=== PATIENT | female | born 1990 | race American Indian/Alaskan Native ===

== ENCOUNTER 2016-09-29 14:47 | Emergency (ER) | payer OTHER, BC ==
[2016-09-29 15:47] VITALS: BP 168/96; PULSE 59; RESP 19; TEMP 97.8; O2SAT 98
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
--- NOTE | 2016-09-29 17:02 | RAD ---
PROCEDURE: Cervical Spine Radiographs. Three views of the cervical spine performed fragments. Note that the study slightly limited due to partial obscuration of the odontoid by overlying occiput in the open-mouth projection. . HISTORY: Pain. COMPARISON: None. FINDINGS: BONES: Current study reveals no evidence of acute a compression fracture nor retropulsed. Vertebral bodies exhibit normal stature. Vertebral bodies and facets normally aligned DISC SPACES: There is minor anterior disc space narrowing at the C5-C6 level with small marginal anterior osteophyte formation. Disc space heights are otherwise maintained. No significant facet or uncovertebral arthropathy SOFT TISSUES: Normal. No prevertebral soft tissue swelling. OTHER FINDINGS: None. IMPRESSION: The slightly limited study demonstrating no acute fractures nor retropulsed fragments. Minor degenerative spondylosis C5-C6 level. No acute fracture seen
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
== END 2016-09-29 17:08 | disposition home or self-care (01) ==
LOC: H.ER 14:47
DX: M54.9 Dorsalgia, unspecified (principal); M54.2 Cervicalgia; M54.12 Radiculopathy, cervical region; V43.52XA Car driver injured in collision with other type car in traffic accident, initial encounter; Y92.410 Unspecified street and highway as the place of occurrence of the external cause; I10 Essential (primary) hypertension

== ENCOUNTER 2018-06-16 13:36 | Emergency (ER) | payer BC, OTHER ==
[2018-06-16 13:50] VITALS: PULSE 66; TEMP 98.9
--- NOTE | 2018-06-16 14:39 | ED PDOC ---
HPI: Chest Pain Time Seen by Provider: 06/16/18 13:53 Chief Complaint (Nursing): Chest Pain Chief Complaint (Provider): Chest Pain History Per: Patient History/Exam Limitations: no limitations Onset/Duration Of Symptoms: Days (x 4) Current Symptoms Are (Timing): Still Present Quality: Burning, "Pain" Additional Complaint(s): 28 year old female with no medical history presents to the ED with left sided chest pain, described as burning, intermittently for the last 4 days. It frequently happens when she is eating. Pain is not worse on exertion or with a deep breath. She also complains of a headache for the last three days. Patient reports she has experienced heartburn before and the pain is unlike the similar episodes. She has also experienced chest pain in the past which she had evaluated by her PMD with a normal EKG. She has not followed up with a specialist. Denies a history of HTN, but has varying blood pressures in the past. Blood pressure is high in the ED at 198/105. Also denies leg swelling, vomiting, nausea, diarrhea and abdominal pain. PMD: does not remember Past Medical History Reviewed: Historical Data, Nursing Documentation, Vital Signs Vital Signs: Last Vital Signs Temp 98.9 F 06/16/18 13:46 Pulse 66 06/16/18 13:46 Resp 15 06/16/18 13:46 BP 198/105 H 06/16/18 13:46 Pulse Ox 97 06/16/18 13:46 - Medical History PMH: HTN - Family History Family History: States: Unknown Family Hx - Immunization History Hx Tetanus Toxoid Vaccination: No Hx Influenza Vaccination: No Hx Pneumococcal Vaccination: No - Home Medications Home Medications: Ambulatory Orders Medication Instructions Recorded Norgestimate-Ethinyl Estradiol 1 tab PO DAILY 06/01/16 [Trinessa Tablet] Cyclobenzaprine [Cyclobenzaprine 10 mg PO Q8 PRN #30 tab 09/29/16 HCl] RX: Naproxen [Naprosyn] 500 mg PO BID PRN #30 tab 09/29/16 Famotidine [Pepcid] 20 mg PO DAILY #14 tab 06/16/18 - Allergies Allergies/Adverse Reactions: Allergies Allergy/AdvReac Type Severity Reaction Status Date / Time No Known Allergies Allergy Verified 06/16/18 13:50 GAMA Risk Score for UA/NSTEMI - GAMA Risk Score Age > 64: NO 3 or more CAD Risk Factors: NO Known CAD (Stenosis greater than 50%): NO Aspirin use in past 7 days: NO Severe Angina: NO EKG ST changes greater than 0.5mm: NO Positive Cardiac Marker: NO GAMA Score: 0 Risk %: 5% Wells Criteria for PE - Wells Criteria for Pulmonary Embolism Clinical Signs and Symptoms of DVT: No P.E is #1 Diagnosis, or Equally Likely: No Heart Rate >100: No Immobilization at least 3 days;Surgery previous 4 weeks: No Previous, objectively diagnosed PE or DVT: No Hemoptysis: No Malignancy w/treatment within 6 months, or palliative: No Total Score: 0 Review of Systems ROS Statement: Except As Marked, All Systems Reviewed And Found Negative Constitutional: Negative for: Fever, Chills Cardiovascular: Positive for: Chest Pain Respiratory: Negative for: Cough, Shortness of Breath, SOB with Exertion Gastrointestinal: Negative for: Nausea, Vomiting, Abdominal Pain, Diarrhea Genitourinary Female: Negative for: Dysuria, Frequency Musculoskeletal: Negative for: Leg Pain (and swelling) Physical Exam - Reviewed Nursing Documentation Reviewed: Yes Vital Signs Reviewed: Yes - Physical Exam Appears: Positive for: Non-toxic, No Acute Distress Head Exam: Positive for: ATRAUMATIC, NORMAL INSPECTION, NORMOCEPHALIC Skin: Positive for: Normal Color, Warm, Dry Eye Exam: Positive for: EOMI, Normal appearance, PERRL Neck: Positive for: Normal, Painless ROM, Supple Cardiovascular/Chest: Positive for: Regular Rate, Rhythm. Negative for: Murmur Respiratory: Positive for: Normal Breath Sounds. Negative for: Wheezing, Respiratory Distress Gastrointestinal/Abdominal: Positive for: Normal Exam, Soft. Negative for: Tenderness Back: Positive for: Normal Inspection. Negative for: L CVA Tenderness, R CVA Tenderness Extremity: Positive for: Normal ROM (x 4). Negative for: Deformity Neurologic/Psych: Positive for: Alert, Oriented (x 3). Negative for: Motor/Sensory Deficits - Laboratory Results Result Diagrams: 06/16/18 14:38 06/16/18 14:38 - ECG O2 Sat by Pulse Oximetry: 97 (RA) Pulse Ox Interpretation: Normal - Progress Re-evaluation Time: 17:50 Condition: Re-examined, Improved Medical Decision Making Medical Decision Makin:17 Impression: chest pain and headache Diff dx for chest pain include but are not limited to: ACS, PE, GERD, musculoskeletal pain. Diff dx for headache: HTN Initial Plan: --BMP --CBC --D Dimer --Troponin --EKG --CXR --Motrin 600 mg PO Scribe Attestation: Documented by Jeni Howard acting as a scribe for Georgia Cavazos MD Provider Scribe Attestation: All medical record entries made by the Scribe were at my direction and personally dictated by me. I have reviewed the chart and agree that the record accurately reflects my personal performance of the history, physical exam, medical decision making, and the department course for this patient. I have also personally directed, reviewed, and agree with the discharge instructions and disposition. Disposition - Clinical Impression Clinical Impression: Chest pain - Patient ED Disposition Is Patient to be Admitted: No Doctor Will See Patient In The: Office Counseled Patient/Family Regarding: Studies Performed, Diagnosis, Need For Followup - Disposition Referrals: Yazan Baeza MD [Staff Provider] - Disposition: Routine/Home Disposition Time: 17:51 Condition: GOOD Additional Instructions: MOE MENDOZA, thank you for letting us take care of you today. Your provider was Georgia Cavazos MD and you were treated for CHEST PAIN. The emergency medical care you received today was directed at your acute symptoms. If you were prescribed any medication, please fill it and take as directed. It may take several days for your symptoms to resolve. Return to the Emergency Department if your symptoms worsen, do not improve, or if you have any other problems. Please contact your doctor or call one of the physicians/clinics you have been referred to that are listed on the Patient Visit Information form that is included in your discharge packet. Bring any paperwork you were given at discharge with you along with any medications you are taking to your follow up visit. Our treatment cannot replace ongoing medical care by a primary care provider outside of the emergency department. Thank you for allowing the [facility] team to be part of your care today. If you had an X-Ray or CT scan: A Radiologist will review the ED reading if any change in treatment is needed we will contact you. If you had a blood, urine, or wound culture: It will take several days for the results, if any change in treatment is needed we will contact you. If you had an STI test: It will take 48 hours for the results. Please call after 1 week if you have not heard back. Prescriptions: Famotidine [Pepcid] 20 mg PO DAILY #14 tab Instructions: Chest Pain
[2018-06-16 14:50] LABS: BASO # 0.1 K/uL (0.0-0.2); BASO % 1.3 % (0.0-2.0); EOS # 0.1 K/uL (0.0-0.7); EOS % 2.5 % (0.0-4.0); LYMPH # 1.7 K/uL (1.0-4.3); MEAN CELL VOLUME 91.8 fl (81.0-99.0); MEAN CORPUSCULAR HEMOGLOBIN 30.7 pg (27.0-31.0); MEAN CORPUSCULAR HGB CONC 33.4 g/dL (33.0-37.0); MEAN PLATELET VOLUME 8.6 fl (7.2-11.7); MONO # 0.3 K/uL (0.0-0.8); MONO % 6.6 % (0.0-10.0); NEUT # 2.6 K/uL (1.8-7.0); NEUT % 53.6 % (50.0-75.0); NRBC % 0.1 % (0.0-0.0); RBC 4.25 Mil/uL (3.80-5.20); RED CELL DISTRIBUTION WIDTH 12.8 % (11.5-14.5); WHITE BLOOD COUNT 4.8 K/uL (4.8-10.8)
[2018-06-16 14:57] LABS: BLOOD UREA NITROGEN 13 mg/dl (7-17); CALCIUM 9.1 mg/dL (8.4-10.2); GFR NON-AFRICAN AMERICAN > 60
--- NOTE | 2018-06-16 16:12 | RAD ---
Date of service: 06/16/2018 HISTORY: chest pain COMPARISON: No prior. TECHNIQUE: Chest PA and lateral FINDINGS: LUNGS: No active pulmonary disease. PLEURA: No significant pleural effusion identified. No pneumothorax apparent. CARDIOVASCULAR: No aortic atherosclerotic calcification present. Normal cardiac size. No pulmonary vascular congestion. OSSEOUS STRUCTURES: No significant abnormalities. VISUALIZED UPPER ABDOMEN: Normal. OTHER FINDINGS: None. IMPRESSION: No active disease.
[2018-06-16 20:46] VITALS: BP 144/90; RESP 18
--- NOTE | 2018-06-17 00:01 | CARD ---
APPROVED REPORT Date of service: 06/16/2018 EKG Measurement Heart [id number] <Conclusion> Normal sinus rhythm Normal Electrocardiogram
[2018-06-17 12:35] VITALS: O2SAT 97
== END 2018-06-16 17:53 | disposition home or self-care (01) ==
LOC: H.ER 13:36
DX: R07.89 Other chest pain (principal); I10 Essential (primary) hypertension

== ENCOUNTER 2018-06-27 06:41 | Emergency (ER) | payer BC ==
[2018-06-27] MEDS ORDERED: Sodium Chloride 0.9% 1,000 ML IV STA (07:28)
--- NOTE | 2018-06-27 08:01 | ED PDOC ---
HPI: Abdomen Time Seen by Provider: 06/27/18 07:15 Chief Complaint (Nursing): Back Pain Chief Complaint (Provider): Abdominal Pain History Per: Patient History/Exam Limitations: no limitations Onset/Duration Of Symptoms: Hrs Current Symptoms Are (Timing): Still Present Additional Complaint(s): Patient is a 28 y/o female with a PMHx of HTN who presents to the ED for kolby luation of epigastric and right, upper quadrant abdominal pain ongoing since last night. Patient reports associated nausea and vomiting. Patient denies fever, diarrhea, and hematemesis. PCP: None Provided Past Medical History Reviewed: Historical Data, Nursing Documentation, Vital Signs Vital Signs: Last Vital Signs Temp 97.6 F 06/27/18 06:53 Pulse 79 06/27/18 06:53 Resp 16 06/27/18 06:53 BP 120/87 06/27/18 06:53 Pulse Ox 99 06/27/18 06:53 - Medical History PMH: HTN - Surgical History Surgical History: No Surg Hx - Family History Family History: States: Unknown Family Hx - Immunization History Hx Tetanus Toxoid Vaccination: No Hx Influenza Vaccination: No Hx Pneumococcal Vaccination: No - Home Medications Home Medications: Ambulatory Orders Medication Instructions Recorded Norgestimate-Ethinyl Estradiol 1 tab PO DAILY 06/01/16 [Trinessa Tablet] Cyclobenzaprine [Cyclobenzaprine 10 mg PO Q8 PRN #30 tab 09/29/16 HCl] Naproxen [Naprosyn] 500 mg PO BID PRN #30 tab 09/29/16 Famotidine [Pepcid] 20 mg PO DAILY #14 tab 06/16/18 Dicyclomine [Dicyclomine HCl] 10 mg PO Q8 #10 cap 06/27/18 Famotidine [Pepcid] 20 mg PO Q12 #20 tab 06/27/18 Ondansetron [Zofran] 4 mg PO Q8H #10 tab 06/27/18 - Allergies Allergies/Adverse Reactions: Allergies Allergy/AdvReac Type Severity Reaction Status Date / Time No Known Allergies Allergy Verified 06/27/18 06:53 Review of Systems ROS Statement: Except As Marked, All Systems Reviewed And Found Negative Constitutional: Negative for: Fever Gastrointestinal: Positive for: Nausea, Vomiting, Abdominal Pain (epigastric and right, upper quadrant). Negative for: Diarrhea, Hematemesis Physical Exam - Reviewed Nursing Documentation Reviewed: Yes Vital Signs Reviewed: Yes - Physical Exam Appears: Positive for: Non-toxic, No Acute Distress Head Exam: Positive for: ATRAUMATIC, NORMAL INSPECTION, NORMOCEPHALIC Skin: Positive for: Normal Color, Warm, Dry Eye Exam: Positive for: EOMI, Normal appearance, PERRL Neck: Positive for: Normal, Painless ROM, Supple Cardiovascular/Chest: Positive for: Regular Rate, Rhythm. Negative for: Murmur Respiratory: Positive for: Normal Breath Sounds. Negative for: Respiratory Distress Gastrointestinal/Abdominal: Positive for: Tenderness (epigastric and right, upper quadrant) Back: Positive for: Normal Inspection. Negative for: L CVA Tenderness, R CVA Tenderness, Vertebral Tenderness Extremity: Positive for: Normal ROM. Negative for: Pedal Edema, Deformity Neurologic/Psych: Positive for: Alert, Oriented. Negative for: Motor/Sensory Deficits - Laboratory Results Result Diagrams: 06/27/18 08:10 06/27/18 08:10 - ECG O2 Sat by Pulse Oximetry: 99 (RA) Pulse Ox Interpretation: Normal - Progress Re-evaluation Time: 10:26 Condition: Improved (No vomiting) Medical Decision Making Medical Decision Making: Time: 0728 Impression: Abdominal pain, nausea, and vomiting. DDx includes but not limited to possible gastritis, peptic ulcer, and gallbladder disease. Plan: VBG Shock CT Abd Pelvis IV Contrast CMP Lipase Urine Urine Dipstick CBC Morphine 2 mg IVP IV Fluids Pepcid 20 mg IVP Zofran 4 mg IVP Time: 0938 FINDINGS: LOWER THORAX: No visible consolidation, pleural effusion, or pneumothorax. LIVER: Hypoattenuation of the liver compatible with hepatic steatosis. GALLBLADDER AND BILE DUCTS: Unremarkable. PANCREAS: Unremarkable. SPLEEN: Unremarkable. ADRENALS: Unremarkable. KIDNEYS AND URETERS: The kidneys enhance symmetrically. No hydronephrosis or obstructing calculus identified. VASCULATURE: No aortic aneurysm. No atherosclerotic calcification or mural plaque present. BOWEL: Stomach is nondistended. Lack of oral contrast limits evaluation for bowel pathology. Bowel loops appear within normal limits of caliber without evidence of obstruction. Markedly thickened small bowel loops may reflect enteritis. Diverticulosis. APPENDIX: The appendix appears within normal limits of caliber. PERITONEUM: Small perihepatic and perisplenic ascites. Small pelvic ascites appears higher density, ranging between 9-24 HU. No definite free air. LYMPH NODES: No bulky adenopathy identified. BLADDER: Unremarkable. REPRODUCTIVE: Uterus is present. BONES: No acute osseous abnormality is detected. OTHER FINDINGS: Small fat containing umbilical hernia. IMPRESSION: Markedly thickened small bowel loops may reflect enteritis. Correlate clinically . Small perihepatic and perisplenic ascites. Small pelvic ascites measures between 9-24 HU, possibly related to blood products/ruptured ovarian cyst. Correlate clinically. Diverticulosis. Hypoattenuation of the liver compatible with hepatic steatosis. Additional findings as above. --------- Scribe Attestation: Documented by Randolph Bernal, acting as a scribe for Amando Carney MD. Provider Scribe Attestation: All medical record entries made by the Scribe were at my direction and personally dictated by me. I have reviewed the chart and agree that the record accurately reflects my personal performance of the history, physical exam, medical decision making, and the department course for this patient. I have also personally directed, reviewed, and agree with the discharge instructions and disposition. Disposition - Clinical Impression Clinical Impression: Gastroenteritis, Diverticulosis - Patient ED Disposition Is Patient to be Admitted: No Counseled Patient/Family Regarding: Studies Performed, Diagnosis, Need For Followup, Rx Given - Disposition Referrals: Alec Smith MD [Staff Provider] - Disposition: Routine/Home Disposition Time: 10:27 Condition: FAIR Prescriptions: Dicyclomine [Dicyclomine HCl] 10 mg PO Q8 #10 cap Famotidine [Pepcid] 20 mg PO Q12 #20 tab Ondansetron [Zofran] 4 mg PO Q8H #10 tab Instructions: Diverticulosis, Gastroenteritis (ED) Forms: [employer] ([place]), [facility] ED School/Work Excuse
[2018-06-27 08:17] LABS: BASO # 0.1 K/uL (0.0-0.2); BASO % 0.6 % (0.0-2.0); EOS # 0.1 K/uL (0.0-0.7); EOS % 1.2 % (0.0-4.0); HEMOGLOBIN 14.6 g/dL (12.0-16.0); LYMPH # 1.5 K/uL (1.0-4.3); MEAN CELL VOLUME 89.9 fl (81.0-99.0); MEAN CORPUSCULAR HEMOGLOBIN 30.9 pg (27.0-31.0); MEAN CORPUSCULAR HGB CONC 34.4 g/dL (33.0-37.0); MEAN PLATELET VOLUME 9.4 fl (7.2-11.7); MONO # 0.4 K/uL (0.0-0.8); MONO % 4.4 % (0.0-10.0); NEUT # 7.6 K/uL (1.8-7.0); NEUT % 78.8 % (50.0-75.0); NRBC % 0.1 % (0.0-0.0); RBC 4.73 Mil/uL (3.80-5.20); RED CELL DISTRIBUTION WIDTH 12.9 % (11.5-14.5); WHITE BLOOD COUNT 9.7 K/uL (4.8-10.8)
[2018-06-27 08:26] LABS: ALB/GLOB RATIO 1.1 (1.0-2.1); ALBUMIN 4.4 g/dL (3.5-5.0); ALT/SGPT 40 U/L (9-52); AST/SGOT 38 U/L (14-36); BLOOD UREA NITROGEN 14 mg/dl (7-17); CALCIUM 9.4 mg/dL (8.4-10.2); GFR NON-AFRICAN AMERICAN > 60; LIPASE 133 U/L (23-300)
[2018-06-27] MEDS ORDERED: Sodium Chloride 0.9% 50 ML IV ONE (08:45)
[2018-06-27] MEDS ORDERED: Iohexol 300 100 ML IJ ONE (08:45)
--- NOTE | 2018-06-27 09:52 | CT ---
Date of service: 06/27/2018 PROCEDURE: CT Abdomen and Pelvis with contrast HISTORY: Abd pain COMPARISON: None available TECHNIQUE: Contrast dose: 98 cc Omnipaque IV Radiation dose: Total exam DLP = 963.76 mGy-cm. This CT exam was performed using one or more of the following dose reduction techniques: Automated exposure control, adjustment of the mA and/or kV according to patient size, and/or use of iterative reconstruction technique. FINDINGS: LOWER THORAX: No visible consolidation, pleural effusion, or pneumothorax. LIVER: Hypoattenuation of the liver compatible with hepatic steatosis. GALLBLADDER AND BILE DUCTS: Unremarkable. PANCREAS: Unremarkable. SPLEEN: Unremarkable. ADRENALS: Unremarkable. KIDNEYS AND URETERS: The kidneys enhance symmetrically. No hydronephrosis or obstructing calculus identified. VASCULATURE: No aortic aneurysm. No atherosclerotic calcification or mural plaque present. BOWEL: Stomach is nondistended. Lack of oral contrast limits evaluation for bowel pathology. Bowel loops appear within normal limits of caliber without evidence of obstruction. Markedly thickened small bowel loops may reflect enteritis. Diverticulosis. APPENDIX: The appendix appears within normal limits of caliber. PERITONEUM: Small perihepatic and perisplenic ascites. Small pelvic ascites appears higher density, ranging between 9-24 HU. No definite free air. LYMPH NODES: No bulky adenopathy identified. BLADDER: Unremarkable. REPRODUCTIVE: Uterus is present. BONES: No acute osseous abnormality is detected. OTHER FINDINGS: Small fat containing umbilical hernia. IMPRESSION: Markedly thickened small bowel loops may reflect enteritis. Correlate clinically. Small perihepatic and perisplenic ascites. Small pelvic ascites measures between 9-24 HU, possibly related to blood products/ruptured ovarian cyst. Correlate clinically. Diverticulosis. Hypoattenuation of the liver compatible with hepatic steatosis. Additional findings as above.
[2018-06-27 10:47] VITALS: BP 110/68; PULSE 77; RESP 18; TEMP 98.7; O2SAT 100
== END 2018-06-27 10:52 | disposition home or self-care (01) ==
LOC: H.ER 06:41
DX: K52.9 Noninfective gastroenteritis and colitis, unspecified (principal); K57.90 Diverticulosis of intestine, part unspecified, without perforation or abscess without bleeding; I10 Essential (primary) hypertension; Z79.899 Other long term (current) drug therapy
CPT/HCPCS: 74177; 80053; 81025; 83690; 85025; 96361; 96374; 96375; 99284; J2270; J2405; J7030; Q9967